=== PATIENT | male | born 1970 | race Caucasian/White ===

== ENCOUNTER → 2020-10-10 | Outpatient (CLI) | payer OTHER ==
[~2020-10-10] MED LIST: KENALOG OINT 0.15 GM TOP; LISINOPRIL30 MG PO; METFORMIN HCL500 M2 PO; NEURONTIN600 MG PO; NORCO 5-325 TA1 EACH PO; PROTONIX40 MG PO; VENTOLIN HFA 66.7 GM INH
[2020-10-10 12:58] LABS: HEMOGLOBIN 16.7 gm/dl (14.0-17.5); RED BLOOD COUNT 5.24 M/UL (4.20-5.50); WHITE BLOOD COUNT 6.2 K/UL (4.5-11.0)
[2020-10-10 13:13] LABS: BUN/CREATININE RATIO 15 (0-10)
== END ==
LOC: OPSV2 11:30 → EDSEX 12:02
PROVIDERS: Orthopaedic Surgery
DX: Z01.818 Encounter for other preprocedural examination (principal); G56.02 Carpal tunnel syndrome, left upper limb
CPT/HCPCS: 36415; 80048; 85025; 93005

== ENCOUNTER → 2020-10-11 | Day surgery (SDC) | payer OTHER ==
[~2020-10-11] VITALS: Ht 172.7 cm; Wt 115.7 kg
== END | disposition home or self-care (01) ==
LOC: OR 05:50 → EDSEX 07:30 → OR 11:30
PROVIDERS: Orthopaedic Surgery
PROC: 01N50ZZ Release Median Nerve, Open Approach (ICD-10-PCS; principal; 2020-10-11 07:30)
DX: G56.03 Carpal tunnel syndrome, bilateral upper limbs (principal); I10 Essential (primary) hypertension; F17.210 Nicotine dependence, cigarettes, uncomplicated; E66.01 Morbid (severe) obesity due to excess calories; F32.9 Major depressive disorder, single episode, unspecified; Z79.84 Long term (current) use of oral hypoglycemic drugs; Z79.899 Other long term (current) drug therapy; J44.9 Chronic obstructive pulmonary disease, unspecified; E11.9 Type 2 diabetes mellitus without complications; Z20.822 Contact with and (suspected) exposure to COVID-19
CPT/HCPCS: 82962; J0690; J1100; J1170; J1885; J2001; J2250; J2405; J2704; J2765; J3010; J7030; J7120